=== PATIENT | male | born 1965 | race Caucasian/White ===

== ENCOUNTER → 2020-11-23 11:26 | Outpatient (BNVA) | payer OTHER, SELFPAY | PROVIDERS: Visit Provider Urology ==

== ENCOUNTER 2021-05-13 10:05 | Outpatient (REF) | payer BC, SELFPAY ==
[2021-05-13 10:44] LABS: Binax Internal Control QC Valid; Binax Lot number: 9864; Binax Now Covid-19 Ag Negative (Negative)
== END 2021-05-13 10:06 | disposition home or self-care (01) ==
LOC: HO.LAB 10:05
PROVIDERS: Visit Provider Internal Medicine
DX: Z20.822 Contact with and (suspected) exposure to COVID-19 (principal)
CPT/HCPCS: 36415; C9803

== ENCOUNTER → 2021-05-28 10:12 | Outpatient (BNVA) | payer OTHER, SELFPAY | PROVIDERS: Visit Provider Urology ==

== ENCOUNTER → 2021-05-29 11:26 | Outpatient (BNVA) | payer BC, SELFPAY | PROVIDERS: Visit Provider Urology ==

== ENCOUNTER → 2022-06-17 09:06 | Outpatient (BNVA) | payer BC, SELFPAY | PROVIDERS: PCP Internal Medicine; Visit Provider Urology | DX: Z13.89 Encounter for screening for other disorder (principal) ==

== ENCOUNTER 2022-12-16 15:43 | Outpatient (AMB) | payer BC, SELFPAY ==
--- NOTE | 2022-12-16 15:45 | A.OFFVIS_ITS ---
Intake Intake Visit Reasons: 5M CBC/PSA/Testo(set) Intake Note: Patient is present for Follow Up Urology Med: Sildenafil, Tadalafil, Testosterone Antibiotic Allergy:None Blood Thinner: None Pharmacy: [facility] Allergies lisinopril Allergy (Unknown, Verified 12/16/22 15:47) cough metformin Allergy (Unknown, Verified 12/16/22 15:47) diarrhea niacin [Niaspan Extended-Release] Allergy (Unknown, Verified 12/16/22 15:47) flushed Medication List - Last Reconciled 12/16/22 by Bryon Delgado MD amlodipine-benazepril 10-20 mg 1 cap PO DAILY atenolol 50 mg PO BID atorvastatin 80 mg PO DAILY chlorthalidone 25 mg PO DAILY empagliflozin (Jardiance) 25 mg PO DAILY famotidine 20 mg PO DAILY glipizide mg PO insulin glargine (Basaglar KwikPen U-100 Insulin) units subcut omeprazole 40 mg PO DAILY pen needle, diabetic (BD Ultra-Fine Short Pen Needle) As directed sildenafil 100 mg PO ONCE PRN 30 days tadalafil 20 mg PO ONCE PRN 30 days tadalafil 5 mg (2 x 2.5 mg) PO DAILY 90 days testosterone 4 pumps topical DAILY 28 days HPI HPI Comments History of Present Illness Details Johan is a pleasant male. He is a patient of Dr Hamilton. He seen for the following urologic conditions - hypogonadism - erectile dysfunction in setting of diabetes Stable testosterone on current dosing Did have some response with daily tadalafil an on demand Prescriptions refilled 6 month follow-up Hypogonadism Longstanding Testosterone goal approximately 600 Labs - 11/28 T 630, 06/01 T 320, 10/30 T 500 P 0.7, 06/02 500 0.3 48, 11/30 500 0.8 46 Discussed low and range testosterone today Feeling adequate energy Will continue with gel 4 pumps per day Erectile dysfunction Progressive in setting of diabetes insulin-dependent Current therapy daily tadalafil with on demand Prior therapy - 100 mg Viagra successful on empty stomach PFSH Medical History Diabetes mellitus, type II Hyperlipidemia Hypogonadism in male Left lower quadrant pain Lipoma of abdominal wall Surgical History History of surgery Review of Systems Const Denies chills and Denies fever(s) Card Reports no additional complaints and Denies syncope Resp Denies cough GI Denies abdominal pain and Denies heartburn Reports as per HPI and Denies change in libido Neuro Denies syncope Psych Denies change in libido Endo Denies change in libido Physical Exam Const General: cooperative, healthy appearing, comfortable and no acute distress Orientation/consciousness: patient oriented x3 HEENT Face and sinus: Yes normal facial exam Mouth: moist mucous membranes Neck Neck: Yes normal visual inspection, Yes full ROM and Yes trachea midline Chest Chest palpation & inspection: normal inspection of the chest Resp Effort & Inspection: normal respiratory effort, able to speak in complete sentences and no respiratory distress GI Inspection: Yes normal to inspection Back/Spine/Pelvis Cervical Spine: normal cervical lordosis Thoracic/Lumbar Spine: thoracic and lumbar spine normal to inspection Skin General skin exam: no rashes or lesions noted Neuro General: patient oriented x3, gait normal, tone normal and moves all extremities Extrem General: Yes normal to inspection and Yes capillary refill normal Assessment & Plan Assessment & Plan (1) Hypogonadism in male: Code(s): E29.1 - Testicular hypofunction (2) Erectile dysfunction associated with type 2 diabetes mellitus: Code(s): E11.69 - Type 2 diabetes mellitus with other specified complication; N52.1 - Erectile dysfunction due to diseases classified elsewhere Plan Six month follow-up Orders: Orders Prostate Specific Antigen 6 Months E29.1 - Testicular hypofunction Testosterone, Total 6 Months E29.1 - Testicular hypofunction Complete Blood Count no Diff 6 Months E29.1 - Testicular hypofunction Medications: Changed From tadalafil 5 mg PO DAILY 90 days 90 tabs 0RF sexual activity E11.69 - Type 2 diabetes mellitus with other specified complication, N52.1 - Erectile dysfunction due to diseases classified elsewhere To tadalafil 5 mg (2 x 2.5 mg) PO DAILY 90 days 180 tabs 1RF sexual activity E11.69 - Type 2 diabetes mellitus with other specified complication, N52.1 - Erectile dysfunction due to diseases classified elsewhere Refilled testosterone apply 2 pumps over max area of EACH upper arm and shoulder total 4 pumps 4 pumps topical DAILY 28 days 150 grams 5RF E29.1 - Testicular hypofunction tadalafil as needed 20 mg PO ONCE 30 days PRN 30 tabs 0RF sexual activity E11.69 - Type 2 diabetes mellitus with other specified complication, N52.1 - Erectile dysfunction due to diseases classified elsewhere Discontinued sildenafil administer 60 minutes before intended activity Discontinued Reason: Patient Completed Course 100 mg PO ONCE 30 days PRN 30 tabs 1RF sexual activity E11.69 - Type 2 diabetes mellitus with other specified complication, N52.1 - Erectile dysfunction due to diseases classified elsewhere Patient Instructions: Imaging studies, laboratory and physical exam results were discussed and reviewed in detail. No major barriers to patient understanding were identified. An opportunity to ask questions regarding the treatment plan was provided. All questions were answered. The patient expressed understanding and agreement with the above treatment plan. The patient is aware they should contact our office by phone for worsening of their current condition or the appearance of new urologic symptoms. Compliance is encouraged with any medications and followup testing that is ordered. It is a privilege to participate in the urologic care of your patient. If you have any questions or concerns regarding treatment for the above conditions, or other urologic issues, please do not hesitate to contact me. The office telephone contact is [phone]. This note is constructed using voice recognition software. While every effort has been made to ensure accuracy lobby concierge errors may have been included. Yours sincerely, Dr Bryon Delgado MD, [facility] - Urology Providers of Expert, Compassionate Care for the Genitourinary System Coding Level of Care Code Est Pt Level 3 (16632) Diagnoses Hypogonadism in male E29.1 Erectile dysfunction associated with type 2 diabetes mellitus E11.69; N52.1
== END 2022-12-16 16:03 | disposition home or self-care (01) ==
PROVIDERS: Visit Provider Urology
DX: E29.1 Testicular hypofunction (principal); E11.69 Type 2 diabetes mellitus with other specified complication; N52.1 Erectile dysfunction due to diseases classified elsewhere
CPT/HCPCS: 99213

== ENCOUNTER → 2022-12-16 15:43 | Outpatient (BNVA) | payer BC, SELFPAY | PROVIDERS: Visit Provider Urology ==

== ENCOUNTER 2023-06-18 08:03 | Outpatient (AMB) | payer BC, SELFPAY ==
--- NOTE | 2023-06-18 07:59 | A.OFFVIS_ITS ---
Intake Intake Visit Reasons: 6M PSA/Testosterone(set) Intake Note: Patient presents today for a follow-up Meds- Tadalafil, Testosterone Allergies to Antibiotic- No Known Allergies Blood Thinner- None Tubing Drier Required: No Accompanied by: Self / Same As Patient Allergies lisinopril Allergy (Unknown, Verified 06/18/23 08:01) cough metformin Allergy (Unknown, Verified 06/18/23 08:01) diarrhea niacin [Niaspan Extended-Release] Allergy (Unknown, Verified 06/18/23 08:01) flushed Medication List - Last Reconciled 06/18/23 by Bryon Delgado MD amlodipine-benazepril 10-20 mg 1 cap PO DAILY atenolol 50 mg PO BID atorvastatin 80 mg PO DAILY chlorthalidone 25 mg PO DAILY empagliflozin (Jardiance) 25 mg PO DAILY famotidine 20 mg PO DAILY glipizide mg PO insulin glargine (Basaglar KwikPen U-100 Insulin) units subcut omeprazole 40 mg PO DAILY pen needle, diabetic (BD Ultra-Fine Short Pen Needle) As directed tadalafil 20 mg PO ONCE PRN 30 days tadalafil 5 mg (2 x 2.5 mg) PO DAILY 90 days testosterone 4 pumps topical DAILY 28 days HPI HPI Comments History of Present Illness Details Johan is a pleasant male. He is a patient of Dr Hamilton. He seen for the following urologic conditions - hypogonadism - erectile dysfunction in setting of kamaljit karan Telemedicine Evaluation 15 min Consultation Doximity Dasha Video attempted Stable testosterone on current dosing - trending lower Good response to daily tadalafil Prescriptions refilled 6 month follow-up Hypogonadism Longstanding Testosterone goal approximately 600 Labs - 11/28 T 630, 06/01 T 320, 10/30 T 500 P 0 .7, 06/02 500 0.3 48, 11/30 500 0.8 46 Discussed low and range testosterone today Feeling adequate energy Will continue with gel 4 pumps per day Erectile dysfunction Progressive in setting of diabetes insulin-dependent Current therapy daily tadalafil with on demand Prior therapy - 100 mg Viagra successful on empty stomach PFSH Medical History Hyperlipidemia Diabetes mellitus, type II Hypogonadism in male Left lower quadrant pain Lipoma of abdominal wall Surgical History History of surgery Review of Systems Const All systems reviewed & are unremarkable except as noted in HPI and below Reports no additional complaints Resp Reports no additional complaints GI Reports no additional complaints Reports as per HPI Musc Reports no additional complaints Physical Exam Telemedicine evaluation Appropriate responses Regular breathing rate and rhythm HEENT Head: Yes normal to inspection Ears: hearing grossly normal bilaterally Eyes General: appearance normal, both eyes and all related structures Neck Neck: Yes normal visual inspection Chest Chest palpation & inspection: normal inspection of the chest Resp Effort & Inspection: normal respiratory effort and able to speak in complete sentences Assessment & Plan Assessment & Plan (1) Erectile dysfunction associated with type 2 diabetes mellitus: Code(s): E11.69 - Type 2 diabetes mellitus with other specified complication; N52.1 - Erectile dysfunction due to diseases classified elsewhere (2) Hypogonadism in male: Code(s): E29.1 - Testicular hypofunction Plan Six-month follow-up labs Orders: Orders Prostate Specific Antigen 6 Months E29.1 - Testicular hypofunction Complete Blood Count no Diff 6 Months E29.1 - Testicular hypofunction Testosterone, Total 6 Months E29.1 - Testicular hypofunction Medications: Refilled testosterone apply 2 pumps over max area of EACH upper arm and shoulder total 4 pumps 4 pumps topical DAILY 28 days 150 grams 5RF E29.1 - Testicular hypofunction tadalafil as needed 20 mg PO ONCE 30 days PRN 30 tabs 0RF sexual activity E11.69 - Type 2 diabetes mellitus with other specified complication, N52.1 - Erectile dysfunction due to diseases classified elsewhere tadalafil 5 mg (2 x 2.5 mg) PO DAILY 90 days 180 tabs 1RF sexual activity E11.69 - Type 2 diabetes mellitus with other specified complication, N52.1 - Erectile dysfunction due to diseases classified elsewhere Patient Instructions: Imaging studies, laboratory and physical exam results were discussed and reviewed in detail. No major barriers to patient understanding were identified. An opportunity to ask questions regarding the treatment plan was provided. All questions were answered. The patient expressed understanding and agreement with the above treatment plan. The patient is aware they should contact our office by phone for worsening of their current condition or the appearance of new urologic symptoms. Compliance is encouraged with any medications and followup testing that is ordered. It is a privilege to participate in the urologic care of your patient. If you have any questions or concerns regarding treatment for the above conditions, or other urologic issues, please do not hesitate to contact me. The office tele phone contact is [phone]. This note is constructed using voice recognition software. While every effort has been made to ensure accuracy special projects manager errors may have been included. Yours sincerely, Dr Bryon Delgado MD, [facility] - Urology Providers of Expert, Compassionate Care for the Genitourinary System Telehealth Telehealth Location of provider rendering services: practice address Location of patient: address on file Patient Identification confirmed using: Name, : Yes Telehealth method: video Patient verbally consented to treatment: Yes Patient verbally consented to billing insurance company: Yes Patient informed of any privacy concerns related to visit: Yes Coding Level of Care Code Tele Est Pt Level 4 (90663) Diagnoses Erectile dysfunction associated with type 2 diabetes mellitus E11.69; N52.1 Hypogonadism in male E29.1
== END 2023-06-18 08:39 | disposition home or self-care (01) ==
LOC: HO.HUSH 08:03
PROVIDERS: PCP Internal Medicine; Visit Provider Urology
DX: E11.69 Type 2 diabetes mellitus with other specified complication (principal); N52.1 Erectile dysfunction due to diseases classified elsewhere; E29.1 Testicular hypofunction
CPT/HCPCS: 99213

== ENCOUNTER → 2023-06-18 08:03 | Outpatient (BNVA) | payer BC, SELFPAY | PROVIDERS: PCP Internal Medicine; Visit Provider Urology ==

== ENCOUNTER 2023-09-24 13:44 | Outpatient (RCR) | payer BC, SELFPAY ==
--- NOTE | ~2023-09-24 | XR_ITS ---
EXAMINATION: XR FOOT, RIGHT CLINICAL INFORMATION: Nonhealing wound right foot, attention great toe. COMPARISON: None available. TECHNIQUE: AP, lateral, and oblique views of the right foot. FINDINGS: Moderate dorsal and plantar calcaneal spurs. Destructive process along the distal central and lateral aspects of the proximal phalange of the great toe with collapse of the articular surface and demineralization. Periosteal reaction along the medial shaft of the proximal phalanx of the great toe. Demineralization at the base of the distal tuft of the great toe. Diffuse soft tissue swelling, particularly at the first and second toes. Degenerative changes at the tarsometatarsal joints. Destructive process along the proximal shaft of the proximal phalanx of the second toe with increased calcification in the adjacent soft tissues probably does not extend to the articular surface. Mild periosteal reaction along the proximal shafts of second and third metatarsals. XR/XR foot RT min 3V IMPRESSION: Destructive processes along the distal aspect of the proximal phalanx of the great toe extending to the articular surface as well as along the proximal shaft of the proximal phalanx of the second toe concerning for destructive process such as osteomyelitis in this patient with history of nonhealing wound. Correlation with clinical exam and possible additional imaging with CT scan or MRI recommended. This study was presented Thursday, October 12, 2023 for interpretation. PSA staff will provide results to referring provider at this time.
== END 2024-01-01 10:04 | disposition short-term general hospital (02) ==
LOC: HO.WCC 13:44
PROVIDERS: PCP Internal Medicine; Visit Provider Surgery
DX: E11.621 Type 2 diabetes mellitus with foot ulcer (principal); L97.512 Non-pressure chronic ulcer of other part of right foot with fat layer exposed; E11.69 Type 2 diabetes mellitus with other specified complication; M86.471 Chronic osteomyelitis with draining sinus, right ankle and foot; L03.031 Cellulitis of right toe; E11.40 Type 2 diabetes mellitus with diabetic neuropathy, unspecified; I10 Essential (primary) hypertension
CPT/HCPCS: 11042; 73630; 87070; 87077; 87186; 87205

== ENCOUNTER 2023-12-10 10:20 | Outpatient (REF) | payer BC, SELFPAY ==
[2023-12-10 15:09] LABS: Hematocrit 45.3 % (42.0-52.0); Hemoglobin 15.2 g/dl (14.0-18.0); Mean Corpuscular HGB Conc 33.6 g/dl (31.0-36.0); Mean Corpuscular Hemoglobin 31.3 pg (27.0-33.0); Mean Corpuscular Volume 93.4 fL (80.0-98.0); Mean Platelet Volume 9.7 fL (9.4-12.4); Platelet Count 202 X10*3/uL (160-400); Red Blood Count 4.85 X10*6/uL (4.60-5.80); Red Cell Distribution Width 14.4 % (11.0-16.0); White Blood Count 6.3 X10*3/uL (4.8-10.8)
[2023-12-10 15:55] LABS: Prostate Specific Antigen 1.22 ng/mL (<0.05-4.0)
[2023-12-15 02:13] LABS: Testosterone, Total 355 ng/dL (250-1100)
== END 2023-12-10 10:21 | disposition home or self-care (01) ==
LOC: HO.WFDLDS 10:20
PROVIDERS: Visit Provider Urology
DX: E29.1 Testicular hypofunction (principal); Z12.5 Encounter for screening for malignant neoplasm of prostate
CPT/HCPCS: 36415; 84153; 84403; 85027

== ENCOUNTER 2023-12-22 14:46 | Outpatient (AMB) | payer BC, SELFPAY ==
--- NOTE | 2023-12-22 14:48 | A.OFFVIS_ITS ---
Intake Visit Reasons: 5M Follow Up-cbc/psa/testosterone(set) Intake Note: Patient presents today for a 6 month follow up/cbc/PSA/Testo Meds- Tadalafil, Testosterone Allergies to Antibiotic- No Known Allergies Blood Thinner- None Vp Delivery Required: No Accompanied by: Self / Same As Patient Allergies lisinopril Allergy (Unknown, Verified 12/22/23 14:48) cough metformin Allergy (Unknown, Verified 12/22/23 14:48) diarrhea niacin [Niaspan Extended-Release] Allergy (Unknown, Verified 12/22/23 14:48) flushed HPI Comments Details: Johan is a pleasant male. He is a patient of Dr Hamilton. He seen for the following urologic conditions - hypogonadism - erectile dysfunction in setting of diabetes Testosterone slowly trending lower Continue with tadalafil 5 mg daily Represcribed 5 mg daily tadalafil with 20 on demand May need different formulation of testosterone if lab work remains suppressed Hypogonadism Longstanding Testosterone goal approximately 600 Labs - 11/28 T 630, 06/01 T 320, 10/30 T 500 P 0.7, 06/02 500 0.3 48, 11/30 500 0.8 46, 01/01 355 Discussed low and range testosterone today Feeling adequate energy Will continue with gel 4 pumps per day Erectile dysfunction Progressive in setting of diabetes insulin-dependent Current therapy daily tadalafil with on demand Prior therapy - 100 mg Viagra successful on empty stomach PFSH Medical History Hyperlipidemia Diabetes mellitus, type II Hypogonadism in male Left lower quadrant pain Lipoma of abdominal wall Surgical History History of surgery Physical Exam Const General: cooperative, healthy appearing, comfortable and no acute distress Orientation/consciousness: patient oriented x3 HEENT Face and sinus: Yes normal facial exam Mouth: moist mucous membranes Neck Neck: Yes normal visual inspection, Yes full ROM and Yes trachea midline Chest Chest palpation & inspection: normal inspection of the chest Resp Effort & Inspection: normal respiratory effort, able to speak in complete sentences and no respiratory distress GI Inspection: Yes normal to inspection Back/Spine/Pelvis Cervical Spine: normal cervical lordosis Thoracic/Lumbar Spine: thoracic and lumbar spine normal to inspection Skin General skin exam: no rashes or lesions noted Neuro General: patient oriented x3, gait normal, tone normal and moves all extremities Extrem General: Yes normal to inspection and Yes capillary refill normal Assessment & Plan Assessment & Plan (1) Erectile dysfunction associated with type 2 diabetes mellitus: Code(s): E11.69 - Type 2 diabetes mellitus with other specified complication; N52.1 - Erectile dysfunction due to diseases classified elsewhere Category: Medical (2) Hypogonadism in male: Code(s): E29.1 - Testicular hypofunction Category: Medical Plan Six-month follow-up lab work Orders: Orders Prostate Specific Antigen 6 Months E29.1 - Testicular hypofunction Testosterone, Total 6 Months E29.1 - Testicular hypofunction Complete Blood Count no Diff 6 Months E29.1 - Testicular hypofunction Medications: Changed From testosterone apply 2 pumps over max area of EACH upper arm and shoulder total 4 pumps 4 pumps topical DAILY 28 days 150 grams 5RF E29.1 - Testicular hypofunction To testosterone apply 2 pumps over max area of EACH upper arm and shoulder total 4 pumps 4 pumps topical DAILY 150 grams 5RF 28 days E29.1 - Testicular hypofunction From tadalafil 5 mg (2 x 2.5 mg) PO DAILY 90 days 180 tabs 1RF sexual activity E11. - Type 2 diabetes mellitus with other specified complication, N52.1 - Erectile dysfunction due to diseases classified elsewhere To tadalafil 5 mg PO DAILY 90 tabs 1RF sexual activity 90 days E11. - Type 2 diabetes mellitus with other specified complication, N52.1 - Erectile dysfunction due to diseases classified elsewhere Refilled tadalafil as needed 20 mg PO ONCE PRN 30 tabs 0RF sexual activity 30 days E11. - Type 2 diabetes mellitus with other specified complication, N52.1 - Erectile dysfunction due to diseases classified elsewhere Patient Instructions: Imaging studies, laboratory and physical exam results were discussed and reviewed in detail. No major barriers to patient understanding were identified. An opportunity to ask questions regarding the treatment plan was provided. All questions were answered. The patient expressed understanding and agreement with the above treatment plan. The patient is aware they should contact our office by phone for worsening of their current condition or the appearance of new urologic symptoms. Compliance is encouraged with any medications and followup testing that is ordered. It is a privilege to participate in the urologic care of your patient. If you have any questions or concerns regarding treatment for the above conditions, or other urologic issues, please do not hesitate to contact me. The office telephone contact is [phone]. This note is constructed using voice recognition software. While every effort has been made to ensure accuracy director of partnerships errors may have been included. Yours sincerely, Dr Bryon Delgado MD, [facility] - Urology Providers of Expert, Compassionate Care for the Genitourinary System Coding Level of Care Code Est Pt Level 3 (69782) Diagnoses Erectile dysfunction associated with type 2 diabetes mellitus E11.69; N52.1 Hypogonadism in male E29.1
== END 2023-12-22 15:28 | disposition home or self-care (01) ==
PROVIDERS: PCP Internal Medicine; Visit Provider Urology
DX: E11.69 Type 2 diabetes mellitus with other specified complication (principal); N52.1 Erectile dysfunction due to diseases classified elsewhere; E29.1 Testicular hypofunction
CPT/HCPCS: 99213

== ENCOUNTER → 2023-12-22 14:46 | Outpatient (BNVA) | payer BC, SELFPAY | PROVIDERS: PCP Internal Medicine; Visit Provider Urology ==

== ENCOUNTER 2024-06-22 14:40 | Outpatient (AMB) | payer BC, SELFPAY ==
--- NOTE | 2024-06-22 14:44 | MHC.OFFVIS ---
Intake Visit Reasons: 6M PSA/Testo(set) Intake Note: Pt presents to the office today for a 6 month PSA/Testo follow up. Allergies lisinopril Allergy (Unknown, Verified 06/22/24 14:44) cough metformin Allergy (Unknown, Verified 06/22/24 14:44) diarrhea niacin [Niaspan Extended-Release] Allergy (Unknown, Verified 06/22/24 14:44) flushed HPI Comments Details: Johan is a pleasant male. He is a patient of Dr Hamilton. He seen for the following urologic conditions - hypogonadism - erectile dysfunction in setting of diabetes Six-month follow-up Testosterone slowly trending lower Continue with tadalafil 5 mg daily Represcribed 5 mg daily tadalafil with 20 on demand Lab work remained suppressed T Switch to injectable testosterone Hypogonadism Longstanding Testosterone goal approximately 600 Labs - 11/28 T 630, 06/01 T 320, 10/30 T 500 P 0.7, 06/02 500 0.3 48, 11/30 500 0.8 46, 01/01 355, 06/04 350 1.0 Discussed low and range testosterone today Feeling adequate energy on replacement Erectile dysfunction Progressive in setting of diabetes insulin-dependent Current therapy daily tadalafil with on demand Prior therapy - 100 mg Viagra successful on empty stomach PFSH Medical History Hyperlipidemia Diabetes mellitus, type II Hypogonadism in male Left lower quadrant pain Lipoma of abdominal wall Surgical History History of surgery Review of Systems Const Denies chills and Denies fever(s) Card Reports no additional complaints and Denies syncope Resp Denies cough GI Denies abdominal pain and Denies heartburn Reports as per HPI and Denies change in libido Neuro Denies syncope Psych Denies change in libido Endo Denies change in libido Physical Exam Const General: cooperative, healthy appearing, comfortable and no acute distress Orientation/consciousness: patient oriented x3 HEENT Face and sinus: Yes normal facial exam Mouth: moist mucous membranes Neck Neck: Yes normal visual inspection, Yes full ROM and Yes trachea midline Chest Chest palpation & inspection: normal inspection of the chest Resp Effort & Inspection: normal respiratory effort, able to speak in complete sentences and no respiratory distress GI Inspection: Yes normal to inspection Back/Spine/Pelvis Cervical Spine: normal cervical lordosis Thoracic/Lumbar Spine: thoracic and lumbar spine normal to inspection Skin General skin exam: no rashes or lesions noted Neuro General: patient oriented x3, gait normal, tone normal and moves all extremities Extrem General: Yes normal to inspection and Yes capillary refill normal Assessment & Plan Assessment & Plan (1) Needle phobia: Code(s): F40.298 - Other specified phobia Category: Medical (2) Hypogonadism in male: Code(s): E29.1 - Testicular hypofunction Category: Medical (3) Erectile dysfunction associated with type 2 diabetes mellitus: Code(s): E11.69 - Type 2 diabetes mellitus with other specified complication; N52.1 - Erectile dysfunction due to diseases classified elsewhere Category: Medical Plan Refill topical testosterone Start injectable 2 week follow-up nursing teaching Orders: Orders Testosterone, Free/Total 3 Months E29.1 - Testicular hypofunction Medications: New testosterone cypionate (Depo-Testosterone) 80 mg (0.4 mL) subcut QWEEK 2 mL 5RF 4 weeks E29.1 - Testicular hypofunction syringe (disposable) (BD Luer-Loy Syringe) Testosterone injection weekly 30 ea 0RF E29.1 - Testicular hypofunction, E34.9 - Endocrine disorder, unspecified needle (disp) 23 gauge (BD Regular Bevel Armstrong) Inject testosterone subcutaneous 30 ea 0RF E29.1 - Testicular hypofunction, R79.89 - Other specified abnormal findings of blood chemistry needle (disp) 18 G (BD Regular Bevel Armstrong) As directed - draw up testosterone 30 ea 0RF E29.1 - Testicular hypofunction Discontinued testosterone apply 2 pumps over max area of EACH upper arm and shoulder total 4 pumps Discontinued Reason: Patient Completed Course 4 pumps topical DAILY 28 days 150 grams 5RF E29.1 - Testicular hypofunction Patient Instructions: This note is constructed using voice recognition software. While every effort has been made to ensure accuracy propellant charge loader errors may have been included. Imaging studies, laboratory and physical exam results were discussed and reviewed in detail. No major barriers to patient understanding were identified. An opportunity to ask questions regarding the treatment plan was provided. All questions were answered. The patient expressed understanding and agreement with the above treatment plan. The patient is aware they should contact our office by phone for worsening of their current condition or the appearance of new urologic symptoms. Compliance is encouraged with any medications and followup testing that is ordered. It is a privilege to participate in the urologic care of your patient. If you have any questions or concerns regarding treatment for the above conditions, or other urologic issues, please do not hesitate to contact me. The office telephone contact is [phone]. Sincerely, Dr Bryon Delgado MD, [facility] - Urology Compassionate Specialist Care for the Genitourinary System Coding Level of Care Code Est Pt Level 4 (79140) Diagnoses Needle phobia F40.298 Hypogonadism in male E29.1 Erectile dysfunction associated with type 2 diabetes mellitus E11.69; N52.1
--- OUTSIDE RECORDS SUMMARY | 2024-06-22 15:53 | XMS_ITS | Clinical Summary ---
Author Organization [facility] ity Address [address] [place] [address] Care Team Providers Care Underwater Hunter Trapper Name Role Phone Iris Hamilton MD Primary Care Provider Allergies No known active allergies Medications ibuprofen (ADVIL,MOTRIN) 800 mg tablet TAKE 1 TABLET BY MOUTH EVERY 8 HOURS 02/04/2024 Active Social History Tobacco Use Types Packs/Day Years Used Date Smoking Tobacco: Never Assessed Sex and Gender Information Value Date Recorded Sex Assigned at Not on file Legal Sex Male 11:38 AM EDT Gender Identity Not on file Sexual Orientation Not on file Last Filed Vital Signs Vital Sign Reading Time Taken Comments Blood Pressure - - Pulse - - Temperature - - Respiratory Rate - - Oxygen Saturation - - Inhaled Oxygen Concentration - - Weight 122 kg (270 lb) 02/11/2024 10:17 AM EDT Height 193 cm (6' 4 ) 02/11/2024 10:17 AM EDT Body Mass Index 32.87 02/11/2024 10:17 AM EDT Plan of Treatment Upcoming Encounters Date Type Department Care Team (Late st Contact Info) Description 07/18/2024 8:30 AM EDT Office Visit Orthopedic Surgery - [place] [address] [address] Marco Antonio Estrada, RODO [address] [facility] [address] [place] [address] Health Maintenance Due Date Last Done Comments Pneumococcal Vaccine: Pediat rics (0 to 5 Years) and At-Risk Patients (6 to 64 Years) (1 of 2 - PCV) 1970 DTaP,Tdap,and Td Vaccines (1 - Tdap) 1983 Zoster Vaccines (1 of 2) 2014 COVID-19 Vaccine (1 - 2023-2 5 season) 2024 Influenza Vaccine (#1) 2024 Cholesterol Screening (Lipid Panel) 02/17/2024 Colorectal Cancer Screening: Colonoscopy 02/17/2024 Depression Screening 02/17/2024 HIV Screening 02/17/2024 Hepatitis C Screening 02/17/2024 Social Influencers of Health Screening 02/17/2024 RSV Immunization Patients 60 + Years Old (1 - Risk 60-74 years 1-dose series) 2024 HIB Vaccines Aged Out No longer eligi ble based on patient's age to complete this topic HPV Vaccines Aged Out No longer eligi ble based on patient's age to complete this topic Hepatitis A Vaccines Aged Out No long er eligible based on patient's age to complete this topic Hepatitis B Vaccines Aged Out No long er eligible based on patient's age to complete this topic IPV Vaccines Aged Out No longer eligi ble based on patient's age to complete this topic MMR Vaccines Aged Out No longer eligi ble based on patient's age to complete this topic Meningococcal ACWY Vaccine Aged Out N o longer eligible based on patient's age to complete this topic RSV Immunization Patients Un darion 20 months Aged Out No longer eligible b ased on patient's age to complete this topic Varicella Vaccines Aged Out No longer eligible based on patient's age to complete this topic Care Teams Underwater Hunter Trapper Relationship Specialty Start Date End Date Iris Hamilton MD [address] [place] [address] PCP - General 10/19/23
--- OUTSIDE RECORDS SUMMARY | 2024-06-22 15:53 | XMS_ITS | Continuity of Care Document ---
Author Organization [facility] Address [address] [place] [address]- Care Team Providers Care Press Assistant And Feeder Name Role Phone Joy KRISHNAN, Iris Manning Primary Care Physician Encounter [facility] Date(s): 04/29/24 - 05/29/24 [facility] [address] [place] [id number] Encounter Type: Triage Allergies, Adverse Reactions, Alerts No Known Allergies Immunizations Given and Recorded Vaccine Date Status Refusal Reason influenza virus vaccine, inactivated 03/21/24 Antonio rded influenza virus vaccine, inactivated 02/21/22 Antonio rded influenza virus vaccine, inactivated 03/08/21 Antonio rded influenza virus vaccine, inactivated 02/08/19 Antonio rded influenza virus vaccine, inactivated 04/03/18 Antonio rded Influenza Virus Vaccine (oldterm) 02/27/23 Recorde d tetanus/diphtheria/pertussis, acel(Tdap) 01/21/23 Given pneumococcal 20-valent conjugate vaccine 01/21/23 Given [id number] bivalent booster vax 02/21/22 Recorded SARS-CoV-2 (COVID-19) mRNA-1273 vaccine 05/19/21 R ecorded SARS-CoV-2 (COVID-19) mRNA BNT-162b2 vac 08/16/20 Given SARS-CoV-2 (COVID-19) mRNA BNT-162b2 vac 07/26/20 Given Medications Albuterol (Eqv-Ventolin HFA) 90 mcg/inh inhalation aerosol 2 puffs, Inhalation, Every 4 hours, PRN NEEDED FOR WHEEZING/SHORTNESS OF BREATH, # 18 each, 5 Refills, Maintenance, 09/24/22 10:19:00 AM EDT, [facility] [id number], 25, INHALE 2 PUFFS EVERY 4 HOURS NEEDED FOR WHEEZING/SHORTNESS OF BREATH, 193, cm, 09/09/22 10:14:00 EDT, Height, 124, kg, 06/24/22 12:33:00 EST, Dry Weight Start Date: 09/24/22 Status: Ordered Quantity: 18.0 Unit: each Repeat number: 1 amlodipine-benazepril 10 mg-20 mg oral capsule 1 capsule, By Mouth, Daily, # 90 capsule, 1 Refills, Maintenance, 05/10/24 4:15:00 PM EST, [facility] ST[facility] [id number], 90, TAKE 1 CAPSULE BY MOUTH EVERY DAY, 187, cm, 02/05/24 13:59:00 EDT, Height, 125, kg, 01/31/24 9:33:00 EDT, Dry Weight Start Date: 05/10/24 Status: Ordered Quantity: 90.0 Unit: capsule Repeat number: 1 atenolol 50 mg oral tablet 1, tablet, By Mouth, 2 times a day, # 180 tablet, Refills 1, Tot. Refills 1, Maintenance, 02/12/24 9:37:00 AM EDT, Route to Pharmacy Electronically, [facility]/pharmacy #[id number], 187, cm, 02/05/24 13:59:00 EDT,Height, 125, kg, 01/31/24 9:33:00 EDT, Dry Weight Start Date: 02/12/24 Status: Ordered Quantity: 180.0 Unit: tablet Repeat number: 2 atorvastatin 80 mg oral tablet 1 tablet, By Mouth, Daily, # 90 tablet, 1 Refills, Maintenance, 05/23/24 11:43:00 AM EST, [facility], 187, cm, 05/18/24 8:05:00 EST, Height, 125, kg, 01/31/24 9:33:00 EDT, Dry Weight Start Date: 05/23/24 Status: Ordered Quantity: 90.0 Unit: tablet Repeat number: 1 BD UF SHORT PEN NEEDLE [id number] BD UF SHORT PEN NEEDLE [id number], See Instructions, # 90 Unknown, 3 Refills, Maintenance, USE WITH LANTUS DAILY, 90 DAY SUPPLY E 11.9, 11/19/23 3:22:00 PM EDT, 193, cm, 09/08/23 12:29:00 EDT, Height, 125, kg, 08/24/23 20:02:00 EDT, Dry Weight Start Date: 11/19/23 Status: Ordered Quantity: 90.0 Unit: Unknown Repeat number: 1 BD UF SHORT PEN NEEDLE [id number] BD UF SHORT PEN NEEDLE [id number], See Instructions, # 90 Unknown, 3 Refills, Maintenance, USE WITH LANTUS DAILY, 90 DAY SUPPLY E 11.9, 11/21/22 9:21:00 AM EDT, 193, cm, 11/06/22 14:31:00 EDT, Height, 123, kg, 10/01/22 11:52:00 EDT, Dry Weight Start Date: 11/21/22 Status: Ordered Quantity: 90.0 Unit: Unknown Repeat number: 1 Breo Ellipta 100 mcg-25 mcg/inh inhalation powder 1 puffs, Inhalation, Daily, # 30 each, 0 Refills, Maintenance, 06/10/23 10:49:00 AM EST, Powder, Partial fill upon patient request if the prescription is for a schedule II opioid drug. Start Date: 06/10/23 Status: Ordered Quantity: 30.0 Unit: each Repeat number: 1 chlorthalidone 25 mg oral tablet 1, tablet, By Mouth, Daily, # 90 tablet, Refills 1, Maintenance, 04/29/24 1:54:00 PM EST, Route to Pharmacy Electronically, [id number], 187, cm, 02/05/24 13:59:00 EDT, Height, 125, kg, 01/31/24 9:33:00 EDT, Dry Weight Start Date: 04/29/24 Status: Ordered Quantity: 90.0 Unit: tablet Repeat number: 1 DEXCOM G6 SHANK BONER DEXCOM G6 SHANK BONER, See Instructions, # 1 Unknown, 0 Refills, Maintenance, USE TO MONITOR BLOOD GLUCOSE. E11.9, 09/09/23 9:52:00 AM EDT, 193, cm, 09/08/23 12:29:00 EDT, Height, 125, kg, 08/24/23 20:02:00 EDT, Dry Weight Start Date: 09/09/23 Status: Ordered Quantity: 1.0 Unit: Unknown Repeat number: 1 Dexcom G6 Reciever Dexcom G6 Reciever, See Instructions, # 1 each, Refills 0, Tot. Refills 0, Maintenance, use to monitor BGs. E11.9, 08/13/23 12:44:00 PM EDT, Supply, 193, cm, 08/13/23 10:09:00 EDT, Height, 125, kg, 06/18/23 15:00:00 EST, Dry Weight Start Date: 08/13/23 Status: Ordered Quantity: 1.0 Unit: each Repeat number: 1 Dexcom G6 Sensors Dexcom G6 Sensors, See Instructions, # 3 each, Refills 8, Tot. Refills 8, Maintenance, Change every10 days. E11.9, 01/21/24 5:25:00 PM EDT, Supply, 193, cm, 01/21/24 16:24:00 EDT, Height, 125, kg, 08/24/23 20:02:00 EDT, Dry Weight Start Date: 01/21/24 Status: Ordered Quantity: 3.0 Unit: each Repeat number: 9 Dexcom G6 Transmitters Dexcom G6 Transmitters, See Instructions, # 1 each, Refills 3, Tot. Refills 3, Maintenance, Change every 90 days. E11.9, 01/21/24 5:25:00 PM EDT, Supply, 193, cm, 01/21/24 16:24:00 EDT, Height, 125, kg, 08/24/23 20:02:00 EDT, Dry Weight Start Date: 01/21/24 Status: Ordered Quantity: 1.0 Unit: each Repeat number: 4 DEXCOM G7 Sensor DEXCOM G7 Sensor, See Instructions, # 3 each, Refills 11, Tot. Refills 11, Maintenance, Use to continuously monitor blood lgucose levels E11.9 1 sensor every 10 days, 3 sensors per month, 05/23/24 3:35:00 PM EST, Supply, 187, cm, 05/23/24 14:59:00 EST, Height, 125, kg, 01/31/24 9:33:00 EDT, Dry Weight Start Date: 05/23/24 Status: Ordered Quantity: 3.0 Unit: each Repeat number: 12 FREESTYLE LITE TEST STRIP FREESTYLE LITE TEST STRIP, See Instructions, # 100 Unknown, 11 Refills, Maintenance, CHECK SUGARS 2TIMES A DAY E 11.9, 03/04/23 4:48:00 AM EDT, 193, cm, 01/21/23 13:21:00 EDT, Height, 123, kg, 10/01/22 11:52:00 EDT, Dry Weight Start Date: 03/04/23 Status: Ordered Quantity: 100.0 Unit: Unknown Repeat number: 1 gabapentin 300 mg oral capsule See Instructions, 1 capsule By Mouth QAM and 2-3 caps QHS, # 460 capsule, Refills 3, Tot. Refills 3, Maintenance, 05/18/24 8:50:00 AM EST, Instructions Replace Required Details, Route to Pharmacy Electronically, [facility]/pharmacy #[id number], new instructions, 187, cm, 05/18/24 8:05:00 EST, Height, 125, kg, 01/31/24 9:33:00 EDT, Dry Weight Start Date: 05/18/24 Status: Ordered Quantity: 460.0 Unit: capsule Repeat number: 4 glipiZIDE 5 mg oral tablet See Instructions, 2 tablets By Mouth, 2x Daily E11.9 90 day supply, # 360 tablet, Refills 5, Tot. Refills 5, Maintenance, 05/23/24 3:34:00 PM EST, Instructions Replace Required Details, Route to Pharmacy Electronically, [facility]/pharmacy #[id number], Partial fill upon patient request if the prescription is for a schedule II opioid drug., 187, cm, 05/23/24 14:59:00 EST, Height, 125, kg, 01/31/24 9:33:00 EDT, Dry Weight Start Date: 05/23/24 Status: Ordered Quantity: 360.0 Unit: tablet Repeat number: 6 Gvoke HypoPen 1 mg/0.2 mL subcutaneous solution = 1 mg, Subcutaneous Infusion, Once, To be use for hypoglycemic emergency by family member or accompanying person, if blood glucoses less than 60 and unconscious. Please call 911 after use glucagon pen., # 1 each, 0 Refills, Soft Stop, 05/23/24 3:35:00 PM EST, [facility]/pharmacy #[id number], Partial fill upon patient request if the prescription is for a schedule II opioid drug., 187, cm, 05/23/24 14:59:00 EST, Height, 125, kg, 01/31/24 9:33:00 EDT, Dry Weight Start Date: 05/23/24 Status: Ordered Quantity: 1.0 Unit: each Repeat number: 1 lansoprazole 15 mg oral enteric coated capsule 2 capsule, By Mouth, 2 times a day, # 360 capsule, 1 Refills, Maintenance, 05/19/24 3:20:00 PM EST, [id number], 187, cm, 05/18/24 8:05:00 EST, Height, 125, kg, 01/31/24 9:33:00 EDT, Dry Weight Start Date: 05/19/24 Status: Ordered Quantity: 360.0 Unit: capsule Repeat number: 1 Lantus Solostar Pen 100 units/mL subcutaneous solution See Instructions, INJECT 76 UNITS SUBCUTANEOUS INFUSION DAILY, # 75 Unknown, 5 Refills, Maintenance, 05/23/24 3:33:00 PM EST, [facility]/pharmacy #[id number], 187, cm, 05/23/24 14:59:00 EST, Height, 125, kg, 01/31/24 9:33:00 EDT, Dry Weight Start Date: 05/23/24 Status: Ordered Quantity: 75.0 Unit: Unknown Repeat number: 6 levocetirizine 5 mg oral tablet 1 tablet, By Mouth, Daily in PM, # 90 tablet, 1 Refills, Maintenance, 04/29/24 1:54:00 PM EST, [id number], 90, TAKE 1 TABLET BY MOUTH EVERY EVENING, 187, cm, 02/05/24 13:59:00 EDT, Height, 125, kg, 01/31/24 9:33:00 EDT, Dry Weight Start Date: 04/29/24 Status: Ordered Quantity: 90.0 Unit: tablet Repeat number: 1 Ozempic 8 mg/3 mL (2 mg dose) subcutaneous solution = 2 mg, Subcutaneous Infusion, Every 7 days, # 12 each, 3 Refills, Maintenance, 05/23/24 3:30:00 PM EST, [id number], Partial fill upon patient request if the prescription is for a schedule II opioid drug., 187, cm, 05/23/24 14:59:00 EST, Height, 125, kg, 01/31/24 9:33:00 EDT, Dry Weight Start Date: 05/23/24 Stop Date: 05/18/25 Status: Ordered Quantity: 12.0 Unit: each Repeat number: 4 Pen [place], 31 G x 8 mm BD Ultra Fine III See Instructions, # 90 each, Refills 3, Tot. Refills 3, Maintenance, use to inject Lantus once a day 90 day supply dx e11.9, 04/29/24 3:16:00 PM EST, pt requesting uf short needle, Supply, 187, cm, 02/05/24 13:59:00 EDT, Height, 125, kg, 01/31/24 9:33:00 EDT, Dry Weight Start Date: 04/29/24 Status: Ordered Quantity: 90.0 Unit: each Repeat number: 4 Probiotic Formula 1 capsule, By Mouth, Daily, 0 Refills, Maintenance, 11/01/18 9:29:43 AM EDT Start Date: 11/01/18 Status: Ordered Repeat number: 1 Spiriva Respimat 60 ACT 2.5 mcg/inh inhalation aerosol 2 puffs = 5 mcg, Inhalation, Daily, 0 Refills, Maintenance, 06/10/23 10:49:00 AM EST, Partial fill upon patient request if the prescription is for a schedule II opioid drug. Start Date: 06/10/23 Status: Ordered Repeat number: 1 vancomycin 1.5 g intravenous injection = 1,500 mg, IVPB, Every 12 hours, end date (09/08/2023), 0 Refills, Maintenance, 08/28/23 12:50:00 PMEDT, Injection, Partial fill upon patient request if the prescription is for a schedule II opioid drug. Start Date: 08/28/23 Stop Date: 09/11/23 Status: Ordered Repeat number: 1 Vitamin D3 50 mcg (2000 intl units) oral tablet, chewable 1 tablet = 50 mcg, By Mouth, Daily, # 30 each, 0 Refills, Maintenance, 08/24/23 8:16:00 PM EDT, ChewTablet, Partial fill upon patient request if the prescription is for a schedule II opioid drug. Start Date: 08/24/23 Status: Ordered Quantity: 30.0 Unit: each Repeat number: 1 Problem List Condition Confirmation Course Effective Dates Status Health Status Informant Encounter for completion of form with patient Confirmed Active Alcohol dependence Confirmed Active Amputated great toe of right foot Confirmed Active Witnessed apneic spells Confirmed Active Asthma Confirmed Active COPD without exacerbation Confirmed Active COVID-19 long hauler manifesting chronic cough Confirmed Active Vaccine counseling Confirmed Active Deformity of toe of right foot Confirmed Active Diabetic nephropathy Confirmed Active Dystrophic nail Confirmed Active Leg edema, right Confirmed Active Abnormal EKG Confirmed Active Toe fracture, right Confirmed Active Ganglion cyst Confirmed Active GERD (gastroesophageal reflux disease) Confirmed Active Hearing loss Confirmed Active Hip pain, left Confirmed Active History of alcoholic hepatitis Confirmed Active History of diverticulitis Confirmed Active History of COVID-19 Confirmed Active Hypercholesterolemia Confirmed Active Hypertension Confirmed Active Hypertensive nephropathy Confirmed Active Impotence of organic origin Confirmed Active Ageusia Confirmed Active Male hypogonadism Confirmed Active Migraine Confirmed Active Neck pain Confirmed Active Charcot's joint of foot in type 2 diabetes mellitus Confirmed Active Neuropathy due to type 2 diabetes mellitus Confirmed Active Obesity Confirmed Active Healthcare maintenance Confirmed Active Prostate cancer screening Confirmed Active Elevated ferritin level Confirmed Active Severe obesity (BMI 35.0-39.9) with comorbidity Confirmed Active Hepatic steatosis Confirmed Active Swelling of right foot Confirmed Active Type 2 diabetes mellitus Confirmed Active Vertigo Confirmed Active Vitamin D deficiency Confirmed Active Social History Social History Type Response Smoking Status Former smoker, quit more than 30 days ago entered on: 11/01/18 Sex Sex Representation Male (finding) Patient Care team information Care Team Personnel Name: Joy KRISHNAN, Iris Manning Position: [facility] Physician - Primary Care Member Role: PCP Address: [address] [place] [address], [address] [place] [id number] Telecom: Name: Jeannette Rivera RN Position: [facility] RN Supv Member Role: Primary Care Nurse Care Team Related Persons Name: ROWDY ESPINOZA Insurance Providers Guarantor name: VALERIANO ESPINOZA Health Plan Information #: 1 Payer: [employer] Member Number: NA Policy Number: NA Group Number: NA
== END 2024-06-22 15:18 | disposition home or self-care (01) ==
PROVIDERS: PCP Internal Medicine; Visit Provider Urology
DX: F40.298 Other specified phobia (principal); E29.1 Testicular hypofunction; E11.69 Type 2 diabetes mellitus with other specified complication; N52.1 Erectile dysfunction due to diseases classified elsewhere
CPT/HCPCS: 99214

== ENCOUNTER → 2024-06-22 14:40 | Outpatient (BNVA) | payer BC, SELFPAY | PROVIDERS: PCP Internal Medicine; Visit Provider Urology ==

== ENCOUNTER 2024-09-20 15:06 | Outpatient (AMB) | payer BC, SELFPAY ==
--- NOTE | 2024-09-20 15:17 | MHC.OFFVIS ---
Intake Visit Reasons: 3m/Testo(testo?) Intake Note: Patient is present for 3M/TESTO Urology Medication:TADALAFIL,TESTOSTERONE Antibiotic Allergy:NONE Blood Thinner:NONE Boat Outboard Engine Mechanic Required: No Allergies lisinopril Allergy (Unknown, Verified 09/20/24 15:19) cough metformin Allergy (Unknown, Verified 09/20/24 15:19) diarrhea niacin [Niaspan Extended-Release] Allergy (Unknown, Verified 09/20/24 15:19) flushed HPI Comments Details: Johan is a pleasant male. He is a patient of Dr Hamilton. He seen for the following urologic conditions - hypogonadism - erectile dysfunction in setting of diabetes Three-month follow-up Good response to injectable testosterone Review in six-month Hypogonadism Longstanding Testosterone goal approximately 600 Labs - 11/28 T 630, 06/01 T 320, 10/30 T 500 P 0.7, 06/02 500 0.3 48, 11/30 500 0.8 46, 01/01 355, 06/04 350 1.0, 10/02 496 Discussed low and range testosterone today Feeling adequate energy on replacement Erectile dysfunction Progressive in setting of diabetes insulin-dependent Current therapy daily tadalafil with on demand Prior therapy - 100 mg Viagra successful on empty stomach PFSH Medical History Hyperlipidemia Diabetes mellitus, type II Hypogonadism in male Left lower quadrant pain Lipoma of abdominal wall Surgical History History of surgery Review of Systems Const Denies chills and Denies fever(s) Card Reports no additional complaints and Denies syncope Resp Denies cough GI Denies abdominal pain and Denies heartburn Reports as per HPI and Denies change in libido Neuro Denies syncope Psych Denies change in libido Endo Denies change in libido Physical Exam Const General: cooperative, healthy appearing, comfortable and no acute distress Orientation/consciousness: patient oriented x3 HEENT Face and sinus: Yes normal facial exam Mouth: moist mucous membranes Neck Neck: Yes normal visual inspection, Yes full ROM and Yes trachea midline Chest Chest palpation & inspection: normal inspection of the chest Resp Effort & Inspection: normal respiratory effort, able to speak in complete sentences and no respiratory distress GI Inspection: Yes normal to inspection Back/Spine/Pelvis Cervical Spine: normal cervical lordosis Thoracic/Lumbar Spine: thoracic and lumbar spine normal to inspection Skin General skin exam: no rashes or lesions noted Neuro General: patient oriented x3, gait normal, tone normal and moves all extremities Extrem General: Yes normal to inspection and Yes capillary refill normal Assessment & Plan Assessment & Plan (1) Erectile dysfunction associated with type 2 diabetes mellitus: Code(s): E11.69 - Type 2 diabetes mellitus with other specified complication; N52.1 - Erectile dysfunction due to diseases classified elsewhere Category: Medical (2) Hypogonadism in male: Code(s): E29.1 - Testicular hypofunction Category: Medical Plan Six-month follow-up labs Patient Instructions: This note is constructed using voice recognition software. While every effort has been made to ensure accuracy car customizer errors may have been included. Imaging studies, laboratory and physical exam results were discussed and reviewed in detail. No major barriers to patient understanding were identified. An opportunity to ask questions regarding the treatment plan was provided. All questions were answered. The patient expressed understanding and agreement with the above treatment plan. The patient is aware they should contact our office by phone for worsening of their current condition or the appearance of new urologic symptoms. Compliance is encouraged with any medications and followup testing that is ordered. It is a privilege to participate in the urologic care of your patient. If you have any questions or concerns regarding treatment for the above conditions, or other urologic issues, please do not hesitate to contact me. The office telephone contact is [phone]. Sincerely, Dr Bryon Delgado MD, [facility] - Urology Compassionate Specialist Care for the Genitourinary System Coding Level of Care Code Est Pt Level 3 (51760) Complex EM visit Add On G2211 Diagnoses Erectile dysfunction associated with type 2 diabetes mellitus E11.69; N52.1 Hypogonadism in male E29.1
--- OUTSIDE RECORDS SUMMARY | 2024-09-20 16:06 | XMS_ITS | Clinical Summary ---
Author Organization [address] [facility] Address [address] [place] [address] Phone Care Team Providers Care Deli Slicer Name Role Phone Iris Hamilton MD Primary Care Provider [phone] Allergies No known active allergies Medications ibuprofen (ADVIL,MOTRIN) 800 mg tablet TAKE 1 TABLET BY MOUTH EVERY 8 HOURS 02/04/2024 Active Encounters Date Type Department Care Team Description 07/18/2024 8:30 AM EDT Office Visit Orthopedic Surgery [facility] [address] [facility] [address] [place] [id number] Marco Antonio Estrada, RODO Controlled type 2 diabetes mellitus with diabetic polyneuropathy, without long-term current use of insulin (CMS/HCC V24, CMS/HCC V28) (Primary Dx); Amputee, great toe, right (CMS/HCC V24); Localized edema; Neuropathy; Onychomycosis; Callus from Last 3 Months Social History Tobacco Use Types Packs/Day Years [...] - - Weight 122 kg (270 lb) 07/18/2024 8:27 AM EDT Height 193 cm (6' 3.98 ) 07/18/2024 8:27 AM EDT Body Mass Index 32.88 07/18/2024 8:27 AM EDT Plan of Treatment Upcoming Encounters Date Type Department Care Team (Late st Contact Info) Description 01/18/2025 8:15 AM EDT Office Visit Orthopedic Surgery - [place] [address] [facility] [address] [place] [id number] Marco Antonio Estrada, DPNigel [address] [facility] [address] [place] [address] Health Maintenance Due Date Last Done Comments Diabetes: Annual GFR (Glomerular Filtration Rate) 1964 Diabetes: Annual Foot Exam 1974 Diabetes: Annual Retina Eye Exam 1974 Hepatitis A Vaccines (1 of 2 - Risk 2-dose series) 1983 Zoster Vaccines (1 of 2) 2014 COVID-19 Vaccine ( season) 2024 02/21/2022, 05/19/2021, 08/16/2020, Additional history exists Cholesterol Screening (Lipid Panel) 02/17/2024 Colorectal Cancer Screening: Colonoscopy 02/17/2024 Depression Screening 02/17/2024 HIV Screening 02/17/2024 Hepatitis C Screening 02/17/2024 Social Influencers of Health Screening 02/17/2024 Hepatitis B Vaccines (1 of 3 - Risk 3-dose series) 2024 RSV Immunization Adult Patients (1 - Risk 60-74 years 1-dose series) 2024 Diabetes: Annual Urine Albumin-Creatinine Ratio (uACR) 07/18/2024 Diabetes: Blood Sugar Control Test (HGBA1C) 07/18/2024 Hypertension/CHF/CAD Annual BMP Blood Test 07/18/2024 DTaP,Tdap,and Td Vaccines (2 - Td or Tdap) 01/21/2033 01/21/2023 Pneumococcal Vaccine: 50+ Years Completed 01/21/2023 Pneumococcal Vaccine: Pediatrics (0 to 5 Years) and At-Risk Patients (6 to 64 Years) Completed 01/21/2023 Influenza Vaccine Completed 03/21/2024, , 02/21/2022, Additional history exists HIB Vaccines Aged Out No longer eligi [...] patient's age to complete this topic Meningococcal B Vaccine Aged Out No l onger eligible based on patient's age to complete this topic RSV Immunization Patients Under 20 months Aged Out No longer eligible based on patient's age to complete this topic Varicella Vaccines Aged Out No longer eligible based on patient's age to complete this topic Insurance [facility] Care Teams Deli Slicer Relationship Specialty Start Date End Date Iris Hamilton MD [address] [place] [address] PCP - General 10/19/23
== END 2024-09-20 16:03 | disposition home or self-care (01) ==
LOC: HO.HUSH 15:06
PROVIDERS: PCP Internal Medicine; Visit Provider Urology
DX: E11.69 Type 2 diabetes mellitus with other specified complication (principal); N52.1 Erectile dysfunction due to diseases classified elsewhere; E29.1 Testicular hypofunction
CPT/HCPCS: 99213

== ENCOUNTER → 2024-09-20 15:06 | Outpatient (BNVA) | payer BC, SELFPAY | PROVIDERS: PCP Internal Medicine; Visit Provider Urology ==

== ENCOUNTER 2025-04-21 09:36 | Outpatient (AMB) | payer BC, SELFPAY ==
--- NOTE | 2025-04-21 09:49 | MHC.OFFVIS ---
Intake Visit Reasons: Testosterone Results(set) Intake Note: Reason for Visit: Testosterone Results Urology Meds: Tadalafil, Testosterone Blood Thinners: None Labs: Testosterone- 537 (04/01/2025) Imaging: None Last PVR: None Concert Manager Required: No Accompanied by: Self / Same As Patient Allergies lisinopril Allergy (Unknown, Verified 04/21/25 09:56) cough metformin Allergy (Unknown, Verified 04/21/25 09:56) diarrhea niacin (Niaspan Extended-Release) Allergy (Unknown, Verified 04/21/25 09:56) flushed HPI Comments Details: Johan is a pleasant male. He is a patient of Dr Hamilton. He seen for the following urologic conditions - hypogonadism - erectile dysfunction in setting of diabetes Six-month follow-up Good response to injectable testosterone Hypogonadism Longstanding Testosterone goal approximately 600 Labs - 11/28 T 630, 06/01 T 320, 10/30 T 500 P 0.7, 06/02 500 0.3 48, 11/30 500 0.8 46, 01/01 355, 06/04 350 1.0, 10/02 496, 04/04 540 Discussed low and range testosterone today Feeling adequate energy on replacement Erectile dysfunction Progressive in setting of diabetes insulin-dependent Current therapy daily tadalafil with on demand Prior therapy - 100 mg Viagra successful on empty stomach PFSH Medical History Hyperlipidemia Diabetes mellitus, type II Hypogonadism in male Left lower quadrant pain Lipoma of abdominal wall Surgical History History of surgery Review of Systems Const Denies chills and Denies fever(s) Card Reports no additional complaints and Denies syncope Resp Denies cough GI Denies abdominal pain and Denies heartburn Reports as per HPI and Denies change in libido Neuro Denies syncope Psych Denies change in libido Endo Denies change in libido Physical Exam Const General: cooperative, healthy appearing, comfortable and no acute distress Orientation/consciousness: patient oriented x3 HEENT Face and sinus: Yes normal facial exam Mouth: moist mucous membranes Neck Neck: Yes normal visual inspection, Yes full ROM and Yes trachea midline Chest Chest palpation & inspection: normal inspection of the chest Resp Effort & Inspection: normal respiratory effort, able to speak in complete sentences and no respiratory distress GI Inspection: Yes normal to inspection Back/Spine/Pelvis Cervical Spine: normal cervical lordosis Thoracic/Lumbar Spine: thoracic and lumbar spine normal to inspection Skin General skin exam: no rashes or lesions noted Neuro General: patient oriented x3, gait normal, tone normal and moves all extremities Extrem General: Yes normal to inspection and Yes capillary refill normal Assessment & Plan Assessment & Plan (1) Hypogonadism in male: Code(s): E29.1 - Testicular hypofunction Category: Medical (2) Erectile dysfunction associated with type 2 diabetes mellitus: Code(s): E11.69 - Type 2 diabetes mellitus with other specified complication; N52.1 - Erectile dysfunction due to diseases classified elsewhere Category: Medical Plan Medication refill Testosterone, tadalafil Continue surveillance Orders: Orders Testosterone, Total 04/21/25 E29.1 - Testicular hypofunction Complete Blood Count no Diff 04/21/25 E29.1 - Testicular hypofunction Prostate Specific Antigen 04/21/25 E29.1 - Testicular hypofunction Medications: Changed From tadalafil as needed 30 mg (1.5 x 20 mg) PO ONCE 30 days PRN 30 tabs 0RF sexual activity E11.69 - Type 2 diabetes mellitus with other specified complication, N52.1 - Erectile dysfunction due to diseases classified elsewhere To tadalafil Two tabs 45 minutes prior to activity as needed 40 mg (2 x 20 mg) PO ONCE PRN 30 tabs 1RF sexual activity 30 days E11.69 - Type 2 diabetes mellitus with other specified complication, N52.1 - Erectile dysfunction due to diseases classified elsewhere Refilled tadalafil 10 mg PO DAILY 90 tabs 1RF sexual activity 90 days E11.69 - Type 2 diabetes mellitus with other specified complication, N52.1 - Erectile dysfunction due to diseases classified elsewhere testosterone cypionate (Depo-Testosterone) Dispose of each file after weekly use 80 mg (0.4 mL) subcut QWEEK 4 mL 5RF 4 weeks E29.1 - Testicular hypofunction Patient Instructions: This note is constructed using voice recognition software. While every effort has been made to ensure accuracy elect equip maint eng errors may have been included. Imaging studies, laboratory and physical exam results were discussed and reviewed in detail. No major barriers to patient understanding were identified. An opportunity to ask questions regarding the treatment plan was provided. All questions were answered. The patient expressed understanding and agreement with the above treatment plan. The patient is aware they should contact our office by phone for worsening of their current condition or the appearance of new urologic symptoms. Compliance is encouraged with any medications and followup testing that is ordered. It is a privilege to participate in the urologic care of your patient. If you have any questions or concerns regarding treatment for the above conditions, or other urologic issues, please do not hesitate to contact me. The office telephone contact is [phone]. Sincerely, Dr Bryon Delgado MD, [facility] - Urology Compassionate Specialist Care for the Genitourinary System Coding Level of Care Code Est Pt Level 4 (42416) Diagnoses Hypogonadism in male E29.1 Erectile dysfunction associated with type 2 diabetes mellitus E11.69; N52.1
== END 2025-04-21 10:34 | disposition home or self-care (01) ==
LOC: HO.HUSH 09:37
PROVIDERS: PCP Internal Medicine; Visit Provider Urology
DX: E29.1 Testicular hypofunction (principal); E11.69 Type 2 diabetes mellitus with other specified complication; N52.1 Erectile dysfunction due to diseases classified elsewhere
CPT/HCPCS: 99214